=== PATIENT | female | born 1990 | race American Indian/Alaskan Native ===

== ENCOUNTER → 2017-11-04 08:03 | Outpatient (CLI) | payer OTHER, SELFPAY ==
--- NOTE | 2017-11-04 08:05 | DI.US.S_ITS ---
PROCEDURE: US ABDOMEN COMPLETE INDICATIONS: steatosis of no history of alcohol abuse TECHNIQUE: Real-time scanning was performed of the abdominal and retroperitoneal organs, with image documentation. COMPARISON: None. FINDINGS: Liver: Liver is normal in size and homogeneous in echotexture. Gallbladder: The gallbladder appears normal Biliary ducts: Intrahepatic bile ducts are non-dilated. Extrahepatic bile duct caliber measures 4.0 mm. Normal is 6-7 mm or less in diameter, or 10 mm or less post-cholecystectomy. Pancreas: Visualized portions of the pancreas are sonographically normal. Spleen: Spleen is normal in size and homogeneous in echotexture. Kidneys: Kidneys are normal in size and echotexture. Right kidney measures 10.2 cm long; left kidney measures 11.5 cm long. No hydronephrosis bilaterally or left-sided nephrolithiasis, but there is a 6 mm calculus at the mid right kidney that does not appear obstructive. No solid masses. Aorta: Visualized aorta is normal in caliber at less than 3 cm. Iliacs: Proximal common iliac arteries are normal in caliber at less than 2.5 cm. IVC: Intrahepatic inferior vena cava is patent. Miscellaneous: No free abdominal fluid. IMPRESSION: 6 mm nonobstructing mid right renal collecting system calculus, no urinary tract obstruction is seen. The hepatic parenchyma currently appears normal. No biliary distention is found. Dictated by: Nestor Ureña M.D. on 11/04/2017 at 9:54 Approved by: Nestor Ureña M.D. on 11/04/2017 at 9:56
== END ==
PROVIDERS: PCP Physician Assistant; Visit Provider Physician Assistant
DX: K76.0 Fatty (change of) liver, not elsewhere classified (principal); N20.0 Calculus of kidney
CPT/HCPCS: 76700

== ENCOUNTER → 2019-12-08 11:42 | Outpatient (CLI) | payer OTHER, SELFPAY ==
[2019-12-08 13:01] LABS: Add Manual Diff / Slide Review NO; Basophils Absolute Auto 100 /uL (0-100); Basophils Percent Auto 0.7 % (0-2); Eosinophils Absolute Auto 200 /uL (0-450); Eosinophils Percent Auto 1.5 % (2-4); Hematocrit 43.5 % (36-46); Hemoglobin 14.7 g/dL (12.0-16.0); Lymphocytes Absolute Auto 3400 /uL (1100-4500); Lymphocytes Percent Auto 31.6 % (25-40); Mean Corpuscular HGB Conc 33.7 % (30-36); Mean Corpuscular Hemoglobin 29.3 PG (26-34); Monocytes Absolute Auto 600 /uL (0-900); Monocytes Percent Auto 5.4 % (3-14); Neutrophils Absolute Auto 6600 /uL (1500-7000); Neutrophils Percent Auto 60.8 % (50-75); Platelet Count 314 X10^3/uL (150-400); Red Cell Distribution Width 12.6 % (11.6-14.8); White Blood Cell Count 10.9 X10^3/uL (4.5-11.0)
[2019-12-08 13:51] LABS: Free T4, Direct Thyroxine 1.28 ng/dL (0.78-2.19)
[2019-12-08 14:05] LABS: TSH w/ Reflex to FT4 1.37 uIU/mL (0.47-4.68)
[2019-12-09 08:12] LABS: Varicella IgG Antibody 621 index (Immune >165)
[2019-12-09 16:13] LABS: Rubella Antibody IgG 73.3 IU/mL (>15)
== END ==
PROVIDERS: Referring Provider Obstetrics & Gynecology; Visit Provider Obstetrics & Gynecology
DX: Z00.00 Encounter for general adult medical examination without abnormal findings (principal)
CPT/HCPCS: 36415; 84439; 84443; 85025; 86762; 86787

== ENCOUNTER → 2020-04-25 13:01 | Outpatient (CLI) | payer OTHER, SELFPAY ==
[2020-04-25 14:08] LABS: HCG Quantitative /Beta subunit 133.1 mIU/mL
== END ==
PROVIDERS: Referring Provider Specialist; Visit Provider Specialist
DX: Z34.90 Encounter for supervision of normal pregnancy, unspecified, unspecified trimester (principal)
CPT/HCPCS: 36415; 84702

== ENCOUNTER → 2020-05-09 13:31 | Outpatient (CLI) | payer OTHER, SELFPAY ==
--- NOTE | 2020-05-09 13:33 | DI.US.S_ITS ---
PROCEDURE: US OB <= 14 WEEKS FETUS INDICATIONS: Bleeding early OB TECHNIQUE: Real-time scanning was performed of the fetus and maternal pelvic organs, with image documentation. Endovaginal scanning was also performed to better visualize the fetus and maternal ovaries. COMPARISON: None. FINDINGS: Gestational sac: Gestational sac-like fluid collection is present with mean sac diameter of 1.0 centimetres and no pole or yolk sac is seen. The sac is somewhat irregular in appearance. Measurement variability in dating: +/- 4 weeks by LMP, +/- 7 days by mean sac diameter (use before 6 weeks gestation if crown-rump length not able to be measured), +/- 5 days by crown-rump length (up to 8 weeks 6 days gestation), +/- 7 days by crown-rump length (up to 13 weeks 6 days gestation). Maternal organs: Ovaries , with right corpus luteal cyst measuring roughly 2.8 cm. No adnexal masses or free fluid. Limited images through the kidneys demonstrate no hydronephrosis. IMPRESSION: Intrauterine gestational sac-like fluid collection with mean sac diameter of 1 cm and no yolk sac or pole is present at this time. Recommend short-term follow-up pelvic ultrasound in [address] Edwards [place] given report and recommendations on May 09, 2020 at 16 11 hours. Dictated by: Ralph WHITEHEAD Interpreted: Ann Anguiano MD on 05/09/2020 at 16:18 Approved by: Ann Anguiano MD, PhD on 05/10/2020 at 11:01
== END ==
PROVIDERS: Referring Provider Obstetrics & Gynecology; Visit Provider Obstetrics & Gynecology
DX: O20.9 Hemorrhage in early pregnancy, unspecified (principal)
CPT/HCPCS: 76801

== ENCOUNTER → 2020-05-16 12:10 | Outpatient (CLI) | payer OTHER, SELFPAY ==
[2020-05-16 13:48] LABS: Add Manual Diff / Slide Review NO; Basophils Absolute Auto 100 /uL (0-100); Basophils Percent Auto 0.7 % (0-2); Eosinophils Absolute Auto 300 /uL (0-450); Eosinophils Percent Auto 2.2 % (2-4); Hematocrit 39.3 % (36-46); Hemoglobin 13.3 g/dL (12.0-16.0); Lymphocytes Absolute Auto 3100 /uL (1100-4500); Lymphocytes Percent Auto 26.2 % (25-40); Mean Corpuscular HGB Conc 33.9 % (30-36); Mean Corpuscular Hemoglobin 29.2 PG (26-34); Mean Corpuscular Volume 86.3 fL (80-100); Monocytes Absolute Auto 900 /uL (0-900); Neutrophils Absolute Auto 7400 /uL (1500-7000); Neutrophils Percent Auto 62.9 % (50-75); Platelet Count 273 X10^3/uL (150-400); Red Blood Cell Count 4.55 X10^6/uL (4.0-5.2); Red Cell Distribution Width 12.7 % (11.6-14.8); White Blood Cell Count 11.7 X10^3/uL (4.5-11.0)
== END ==
PROVIDERS: Referring Provider Obstetrics & Gynecology; Visit Provider Obstetrics & Gynecology
DX: Z34.90 Encounter for supervision of normal pregnancy, unspecified, unspecified trimester (principal)
CPT/HCPCS: 36415; 85025; 86850; 86900; 86901

== ENCOUNTER → 2020-06-10 15:37 | Outpatient (CLI) | payer OTHER, SELFPAY ==
[2020-06-10 16:20] LABS: COVID19 -Nasal RAPID Negative (Negative)
== END ==
PROVIDERS: Visit Provider Physician Assistant
DX: Z20.822 Contact with and (suspected) exposure to COVID-19 (principal)
CPT/HCPCS: 87635

== ENCOUNTER 2020-06-12 11:05 | Day surgery (SDC) | payer OTHER, SELFPAY ==
[2020-06-12] VITALS (12 sets, daily range): BP systolic 96–125; BP diastolic 60–75; PULSE 52–78; RESP 9–16; TEMP 36.6–36.8; O2SAT 89–100; BMI 25.7
--- NOTE | 2020-06-12 | PATH_ITS ---
[facility] Accession Number: [id number] . 01 Material submitted: . product of conception - POC . 02 Diagnosis: Products of Conception: Few chorionic villi present. No evidence of neoplasm. MRV 06/14/2020 1425 Local . 02 Electronically signed: . Julio Blake MD, PhD, Pathologist NPI- [id number] . 01 Gross description: . The specimen is received in formalin, labeled products of conception and consists of multiple denise-pink to red-brown fragments of soft tissue and clotted blood measuring 4.0 x 3.0 x 1.5 cm in aggregate. The specimen is entirely submitted in cassettes A1-A3. ([id number]) /MRV 06/13/2020 1030 Local . 02 Pathologist provided ICD-10: O02.1 . 02 CPT . 195391 Performed at: 01 [facility] [address] [place] [address], [place], [place] [id number] MD Josué Mccallum MD Phone: [phone] Performed at: [address] [facility] [address] [place], [place] [id number] MD Racquel Salvador MD Phone: [phone]
[2020-06-12] MEDS: LACTATED RINGERS 1,000 ML 42 ML IV (11:52)
--- NOTE | 2020-06-12 12:21 | PM.PREOP ---
Pre-operative Note COVID-19 COVID-19 status: Negative Result date/Date tested (Pos, Neg/Pending): 06/10/20 Interval Note History & Physical reviewed/Exam performed by Physician: Yes Changes to H&P: No
[2020-06-12] MEDS: MIDAZOLAM 2 MG/2 ML VIAL IV (12:30)
[2020-06-12] MEDS: CEFAZOLIN 2 GM/100 ML FROZ.PIGGY IV (12:35)
--- NOTE | 2020-06-12 12:51 | SUR.OPER ---
Lithotomy on padded OR bed, head on pillow, arms secured on padded arm boards at <90 degrees abduction. Legs secured in padded yellow fins stirrups.
--- NOTE | 2020-06-12 13:07 | PM.OP.1 ---
Operative Date/Time/Diagnoses Date of procedure: 06/12/20 Time of procedure: 13:07 Pre-op diagnosis: retained products of conception post miscarriage Post-op diagnosis: same Procedure & Clinicians Procedure: D&C Same procedure as scheduled: Yes Indications: retained products of conception post miscarriage causing bleeding Surgeon: Katerine Mcgraw Click Yes if Unassisted: Yes Anesthesia Type: General Operative Notes Findings: small amount of retained products conception Closure Type: not applicable Specimen(s): other ( retained products of conception) Estimated Blood Loss (mL): 30 Blood products transfused: none Procedure in detail: Patient was brought to the operating room where she underwent general anesthesia. She was placed in supine position in low Yellofin stirrups and prepped and draped in usual sterile fashion. Antibiotics were in prior to beginning of the case. Warming was with blankets. Pulsatile stockings were in place and functional. A check system was reviewed with the staff in the room prior to beginning the case. A single-tooth tenaculum was placed on the anterior lip of the cervix and the cervix was dilated to a # 8 Hegar dilator. Sharp curettings were performed to remove the retained products of conception. These were sent to pathology. Patient went to recovery room in good condition. Counts of instruments and sponges were correct. Complications: none Post-operative Condition: stable Disposition: same day surgery Plan for aftercare: home when awake and stable
[2020-06-12] MEDS: fentaNYL 100 MCG/2 ML INJ IV ×2 (13:19→13:26)
[2020-06-12] MEDS: OXYCODONE IR 5 MG TABLET PO (13:47)
--- NOTE | 2020-06-12 14:36 | SUR.PHASEII ---
1425-Pt dcd in stable condition with all dc instructions and verbalizes understanding. Denies pain and in good spirits
== END 2020-06-12 14:25 | disposition home or self-care (01) ==
PROVIDERS: Referring Provider Specialist; Visit Provider Specialist
PROC: (CPT 58120; principal; 2020-06-12 12:30)
DX: O02.1 Missed abortion (principal)
CPT/HCPCS: 59812; J0690; J1100; J1885; J2250; J2405; J2704; J3010

== ENCOUNTER → 2020-10-05 13:35 | Outpatient (CLI) | payer OTHER, SELFPAY ==
[2020-10-05 14:31] LABS: Add Manual Diff / Slide Review NO; Basophils Absolute Auto 100 /uL (0-100); Basophils Percent Auto 0.6 % (0-2); Eosinophils Absolute Auto 200 /uL (0-450); Eosinophils Percent Auto 1.2 % (2-4); Hematocrit 41.9 % (36-46); Hemoglobin 13.9 g/dL (12.0-16.0); Lymphocytes Absolute Auto 3400 /uL (1100-4500); Lymphocytes Percent Auto 23.5 % (25-40); Mean Corpuscular HGB Conc 33.2 % (30-36); Mean Corpuscular Hemoglobin 28.2 PG (26-34); Mean Corpuscular Volume 84.9 fL (80-100); Monocytes Absolute Auto 1000 /uL (0-900); Neutrophils Absolute Auto 9800 /uL (1500-7000); Neutrophils Percent Auto 67.7 % (50-75); Platelet Count 269 X10^3/uL (150-400); Red Blood Cell Count 4.94 X10^6/uL (4.0-5.2); Red Cell Distribution Width 13.1 % (11.6-14.8); White Blood Cell Count 14.5 X10^3/uL (4.5-11.0)
[2020-10-05 16:33] LABS: Hepatitis B Surface Antigen NEGATIVE s/c (NEGATIVE)
[2020-10-05 16:43] LABS: HIV 1 & 2 Ab/Ag 4th Gen Combo NEGATIVE (NEGATIVE); Hep C Virus Ab w/Reflex Quant NEGATIVE s/c (NEGATIVE)
[2020-10-05 17:34] LABS: Rubella Antibody IgG 57.2 IU/mL (>15)
[2020-10-06 06:10] LABS: RPR Screen Non Reactive (Non Reactive)
[2020-10-06 06:46] LABS: Varicella IgG Antibody 487 index (Immune >165)
== END ==
PROVIDERS: Referring Provider Specialist; Visit Provider Specialist
DX: Z34.90 Encounter for supervision of normal pregnancy, unspecified, unspecified trimester (principal)
CPT/HCPCS: 36415; 80055; 86787; 86803; 86850; 86900; 86901; 87389

== ENCOUNTER → 2020-10-18 17:09 | Outpatient (CLI) | payer OTHER, SELFPAY ==
[2020-10-18 19:48] LABS: Appearance Urine UA CLEAR; Bilirubin Urine UA NEGATIVE (NEGATIVE); Color Urine UA YELLOW; Glucose Urine UA NEGATIVE (Negative); Ketones Urine UA 2+ (NEGATIVE); Leukocyte Esterase Urine UA NEGATIVE (NEGATIVE); Nitrite Urine UA NEGATIVE (Negative); Occult Blood Urine UA NEGATIVE (Negative); Protein Urine UA NEGATIVE (Negative); Urobilinogen Urine UA 0.2 E.U./dL (0.2)
[2020-10-18 19:50] LABS: pH Urine UA 6.5 (4.5-8.0)
== END ==
PROVIDERS: Referring Provider Specialist; Visit Provider Specialist
DX: Z34.81 Encounter for supervision of other normal pregnancy, first trimester (principal)
CPT/HCPCS: 81003; 87086

== ENCOUNTER → 2020-10-31 08:22 | Outpatient (CLI) | payer OTHER, SELFPAY | PROVIDERS: Referring Provider Specialist; Visit Provider Specialist | DX: O09.811 Supervision of pregnancy resulting from assisted reproductive technology, first trimester (principal); Z36.0 Encounter for antenatal screening for chromosomal anomalies | CPT/HCPCS: 36415; 81420 ==

== ENCOUNTER → 2020-12-12 12:14 | Outpatient (CLI) | payer OTHER, SELFPAY ==
[2020-12-14 22:36] LABS: Gest Age on Col Date 16.9 weeks (.); Insulin Dep Diabetes No (.); OSBR Risk 1IN 10000 (.); Results Report (.); Test Results *Screen Negative* (.)
== END ==
PROVIDERS: Referring Provider Specialist; Visit Provider Specialist
DX: Z34.82 Encounter for supervision of other normal pregnancy, second trimester (principal); Z3A.16 16 weeks gestation of pregnancy
CPT/HCPCS: 36415; 82105

== ENCOUNTER → 2021-01-11 09:27 | Outpatient (CLI) | payer OTHER, SELFPAY ==
--- NOTE | 2021-01-11 09:30 | DI.US.S_ITS ---
PROCEDURE: US OB >= 14 WEEKS FETUS INDICATIONS: ANATOMY OUTSIDE/PRIOR DATING DATA: Last menstrual period (LMP): Not known. LMP-based estimated date of delivery ([place]): Not applicable. First dating scan (date and location): October 05, 2020. Estimated date of delivery ([place]) from first dating scan: May 30, 2021. TECHNIQUE: Real-time scanning was performed of the fetus, with image documentation and biometric measurements. Endovaginal scanning: Performed COMPARISON: None. FINDINGS: General: A single living intrauterine gestation is present. Presentation: Vertex Placenta: Placental position is left fundal, without previa. Amniotic fluid index: 12.0 cm, normal range is 5-24 cm. heart rate: 141 beats per minute. Maternal cervical canal: Closed and 4.5 cm long. Normal lower limit is 2.5 cm. biometrics: Biparietal diameter: 20 weeks 6 days Head circumference: 19 weeks 6 days Abdominal circumference: 20 weeks 4 days Femur length: 19 weeks 5 days Estimated gestational age from initial scan: 20 weeks 1 day. Composite gestational age from present scan: 20 weeks 2 days Estimated weight and percentile: 336 grams; 46th percentile Measurement variability for biometric dating: +/- 7 days from 14 weeks to 15 weeks 6 days gestation, +/- 10 days from 16 weeks to 21 weeks 6 days gestation, +/- 2 weeks from 22 weeks to 27 weeks 6 days gestation, +/- 3 weeks for 28 weeks gestation or later. weight reference: 4500 g or EFW >90/95% is considered macrosomia or large for gestational age. EFW <10% is small for gestational age. EFW 5% or less is considered intra-uterine growth restriction. Anatomic survey: Neuro: Ventricles are non-dilated at less than 10 mm. Cisterna magna is normal at 3-11 mm. Cerebellum is normal in size and morphology. Nuchal skin fold: Normal at less than 6 mm between 14-21 weeks gestational age. Face: Nose and lips, facial profile are normal. Spine: No evidence for spina bifida. Heart: 4-chambered heart is present, with normal ventricular outflow tracts. Small echogenic focus noted in the left ventricle. Diaphragm: Diaphragm is intact. Stomach: Left-sided stomach is present. Kidneys: No hydronephrosis. Normal is less than 5 mm in 2nd trimester, less than 7 mm in 3rd trimester. Cord: 3-vessel cord has orthotopic insertion. Bladder: Normal in size. Extremities: All 4 extremities identified. IMPRESSION: 1. Single living intrauterine with appropriate interval growth. 2. Normal amniotic fluid index. 3. Normal anatomic survey. 4. Solitary echogenic focus in the left ventricle. In the absence of maternal risk factors and abnormal sonographic findings suggestive of aneuploid the finding is likely incidental. Recommend correlation with maternal clinical history. Dictated by: Ann Anguiano MD, PhD on 01/11/2021 at 10:23 Approved by: Ann Anguiano MD, PhD on 01/11/2021 at 11:24
== END ==
PROVIDERS: Referring Provider Specialist; Visit Provider Specialist
DX: Z34.82 Encounter for supervision of other normal pregnancy, second trimester (principal); Z3A.20 20 weeks gestation of pregnancy
CPT/HCPCS: 76811